=== PATIENT | female | born 1995 | race African-American/Black ===

== ENCOUNTER 2024-12-31 09:06 | Emergency (ER) | payer OTHER, SELFPAY ==
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
--- NOTE | ~2024-12-31 | XR_ITS ---
EXAMINATION: XR wrist RT min 3V, 12/31/2024 11:15 STRATEGY SPECIALIST HISTORY: pain and swelling, RT WRIST COMPARISON: No comparisons available. Findings: No acute fracture or malalignment. No significant degenerative changes. Soft tissues unremarkable. Impression: No acute fracture or malalignment. Reviewed, dictated and finalized at location P. TEGY SPECIALIST Impression: No acute fracture or malalignment.
--- NOTE | ~2024-12-31 | XR_ITS ---
EXAMINATION: XR finger 3rd RT min 2V, 12/31/2024 11:15 HACKLER DOLL WIGS HISTORY: swelling and pain 3RD RT DIGIT COMPARISON: No comparisons available. Findings: No acute fracture or malalignment. No significant degenerative changes. Soft tissues unremarkable. Impression: No acute fracture or malalignment. Reviewed, dictated and finalized at location P. LER DOLL WIGS Impression: No acute fracture or malalignment.
[2024-12-31 09:09] VITALS: BP 109/65; PULSE 71; RESP 18; TEMP 36.5; O2SAT 100
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
--- OUTSIDE RECORDS SUMMARY | 2024-12-31 12:42 | XMS_ITS | Clinical Summary ---
Author Organization [facility] Address [address] [place] [address] Care Team Providers Care Driver Manager Name Role Phone Unavailable Primary Care Provider Unavailabl e Source Comments [facility],non-owned Affiliates and Associated Physician Practices is amultiple site organization consisting of ambulatory clinics and hospital sitesin [place], [place], [place] and [place]. This disclosure is being madepursuant to the Care Everywhere program and may not contain all information available regarding this patient. Last updated 17.[facility] Allergies No known active allergies Medications * Be aware that medications may not be up to date on this document. Alwaysverify current medications with the patient. oyster shell calcium 500 MG tablet Take 500 mg by mouth once daily 05/08/2021 Active Active Problems Problem Noted Date Diagnosed Date Closed fracture of distal en d of left humerus with routine healing 05/08/2021 Impaired mobility and ADLs 05/08/2021 Vitamin D deficiency 05/08/2021 Preop examination 05/07/2021 Fourth 02/16/2020 Encounter for ultrasound 02/16/2020 Prior with demise 02/16/2020 Short interval between pregn ancies affecting , antepartum 02/16/2020 Anemia 02/16/2020 Resolved Problems Problem Noted Date Diagnosed Date Resolved Date Decreased movements in third trimester 0 02/16/2020 demise affecting delivery 07/11/2019 02/16/2020 Immunizations Immunization Administration Dates Next Due MMR 07/13/2019(Deferred: - immune) TDAP (7yrs+) 07/13/2019(Deferred: Patient Ref used) Social History Tobacco Use Types Packs/Day Years Used Date Smoking Tobacco: Never Smokeless Tobacco: Never Alcohol Use Standard Drinks/Week Comments Not Currently 0 (1 standard drink = 0.6 oz pur e alcohol) AUDIT-C Answer Date Recorded Q1: How often do you have a drink containing alc ohol? Never 05/07/2021 Q2: How many drinks containi ng alcohol do you have on a typical day when you are drinking? Patient declined 05/07/2021 Q3: How often do you have si x or more drinks on one occasion? Never 05/07/2021 Hunger Vital Sign Answer Date Recorded Within the past 12 months, y ou worried that your food would run out before you got the money to buy more. Never true 05/09/19 22 Within the past 12 months, t he food you bought just didn't last and you didn't have money to get more. 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 OPERATOR Gender Identity Not on file Sexual Orientation Not on file Last Filed Vital Signs Vital Sign Reading Time Taken Comments Blood Pressure 101/63 05/08/2021 7:11 AM CDT Pulse 84 05/08/2021 7:11 AM CDT Temperature 36.9 C (98.5 F) 05/08/2021 7:11 AM CDT Respiratory Rate 18 05/08/2021 7:11 AM CDT Oxygen Saturation 99% 05/08/2021 7:11 AM CDT Inhaled Oxygen Concentration - - Weight 78.9 kg (174 lb) 08/09/2021 9:16 AM CDT Height 162.6 cm (5' 4) 05/24/2021 4:18 PM CDT Body Mass Index 29.87 05/24/2021 4:18 PM CDT Plan of Treatment Health Maintenance Due Date Last Done Comments HIV SCREENING 09/02/2011 HEPATITIS C SCREENING 08/28/2014 DTAP/TDAP/TD VACCINES (1 - Tdap) 09/02/2015 HEPATITIS B VACCINE (1 of 3 - 19+ 3-dose series) 09/02/2015 HPV VACCINE (1 - 3-dose SCDM series) 09/02/2023 DEPRESSION SCREENING 02/25/2024 COVID-19 VACCINE (1 - 4-2 5 season) 2024 INFLUENZA VACCINE (#1) 2024 ZOSTER VACCINE (1 of 2) 2046 HIB VACCINE Aged Out No longer eligi ble based on patient's age to complete this topic MENINGOCOCCAL (Group B) VACC INE SHARED DECISION-MAKING Aged Out No longer eligibl e based on patient's age to complete this topic MENINGOCOCCAL GROUPS A/C/Y/W VACCINE Aged Out No longer eligible b ased on patient's age to complete this topic PNEUMOCOCCAL VACCINE Aged Out No long er eligible based on patient's age to complete this topic Medical Devices Implanted Type Area [employer] Device Identifier Shelf Expiration Date Model / Serial / Lot Screw 2.7mm 5mm 20mm Ft Cortx Slf-Tap Implanted:Qty: 1 on 05/07/2021 by Sesar Curiel MD at [facility] Left: [employer] [id number] / / Screw 3.5mm 6mm 18mm Ft Armando Slf-Tap Implanted:Qty: 1 on 05/07/2021 by Sesar Curiel MD at [facility] Left: [employer] [id number] / / Screw 3.5mm 6mm 20mm 2.5mm Ft Slf-Tap Implanted:Qty: 2 on 05/07/2021 by Sesar Curiel MD at [facility] Left: [employer] [id number] / / Screw 3.5mm 6mm 22mm 2.5mm Ft Slf-Tap Implanted:Qty: 2 on 05/07/2021 by Sesar Curiel MD at [facility] Left: [employer] [id number] / / Plate 12 Hl Lmt Cntct Tpr End [id number] Implanted:Qty: 1 on 05/07/2021 by Sesar Curiel MD at [facility] Left: [employer] [id number] / / Screw 3.5mm 6mm 24mm 2.5mm Ft Slf-Tap Implanted:Qty: 1 on 05/07/2021 by Sesar Curiel MD at [facility] Left: [employer] [id number] / / Explanted Type Area [employer] Revenue [employer] Device Identifier Shelf Expiration Date Model / Serial / Lot Screw 2.7mm 5mm 26mm Ft Cortx Slf-Tap Explanted:Qty: 1 on 05/07/2021 by Sesar Curiel MD at [facility] Left: Humerus [employer] [facility] [id number] / / Insurance [facility] Advance Directives * Full Code (Latest Code Status on File) Date Activated Date Inactivated Comments 05/07/2021 10:48 AM 05/08/2021 6:51 PM * Full Code Date Activated Date Inactivated Comments 07/11/2019 3:49 PM 07/13/2019 4:59 PM * Full Code Date Activated Date Inactivated Comments 07/11/2019 1:49 PM 07/11/2019 3:49 PM
--- OUTSIDE RECORDS SUMMARY | 2024-12-31 12:42 | XMS_ITS | Clinical Summary ---
Author Organization [facility] Address [address] [place] [address] Care Team Providers Care Motion Picture Equipment Machinist Name Role Phone No, Physician Primary Care Provider [phone] Allergies No known active allergies Medications acetaminophen (TYLENOL) 500 mg tablet Take 2 tablets (1,000 mg total) by mouth every 6 (six) hours as needed for pain (1 tablet for mild to moderate pain. 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 - 12/30/2024 10:18 PM [facility] Emergency [address] [id number] Discharge Disposition: Left without being seen from Last 3 Months Immunizations Immunization Administration Dates Next Due Tdap 02/14/2024 Social History Tobacco Use Types Packs/Day Years [...] on file Legal Sex Female 9:06 PM [employer] 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[employer]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[employer] Gender Identity Not on file Sexual Orientation Not on file Last Filed Vital Signs Vital Sign Reading Time Taken Comments Blood Pressure 102/44 12/30/2024 6:26 PM [employer] Pulse 100 12/30/2024 6:26 PM [employer] Temperature 36.8 C (98.2 F) 12/30/2024 6:26 PM [employer] Respiratory Rate 18 12/30/2024 6:26 PM [employer] Oxygen Saturation 98% 12/30/2024 6:26 PM [employer] Inhaled Oxygen Concentration - - Weight 80.3 kg (177 lb) 02/14/2024 7:05 AM [employer] Height 162.6 cm (5' 4) 02/14/2024 7:05 AM [employer] Body Mass Index 30.38 02/14/2024 7:05 AM [employer] Plan of Treatment Health Maintenance Due Date Last Done Comments Cervical Cancer Screening 1996 Depression Screening 1996 Hepatitis C Screening 1996 Regular Well Visit/Exam 18-64 2014 Covid-19 Vaccine ( season) 2024 10/17/2021, 09/12/2021 DTaP/Tdap/Td Vaccine (11 - Td or Tdap) 02/13/2034 02/14/2024, 03/12/2022, 04/20/2020, Additional history exists Hepatitis B Screening Completed 11/01/1999 , 03/01/1997, 1996 Varicella Vaccines Completed 10/07/2007, 01/01/2000 HPV Vaccines Completed 09/26/2016, 10/04/2008 Influenza Vaccine Completed 11/14/2024, 03/12/2022 Pneumococcal vaccine <65 Aged Out No longer eligible based on patient's age to complete this topic Procedures Procedure Name Priority Date/Time Associated Diagnosis Comments XR WRIST RIGHT 2 VIEWS ED 12/30/2024 7:09 PM [employer] XR HAND RIGHT 3 OR MORE VIEWS ED 12/30/2024 7:09 PM [employer] from Last 3 Months Results * XR Hand Right 3 or More Views (12/30/2024 7:09 PM [employer]) Anatomical Region Laterality Modality Upper Extremities, Hand Right Computed Radiography 12/30/2024 7:11 PM [employer] Impressions 12/30/2024 7:11 PM [employer] FINDINGS/IMPRESSION: Generalized osteopenia and minor degenerative changes are noted. No fracture dislocation or other acute process is seen. Electronically signed by: Lan Valdez M.D. Narrative 12/30/2024 7:11 PM [employer] MEDICAL RECORDS NUMBER: [id number] PROCEDURE: XR HAND RIGHT 3 OR MORE VIEWS DATE: 12/30/2024 7:00 PM HISTORY: 29 years old Female. pain VIEWS: 3 COMPARISON: None Procedure Note Lan Valdez MD - 12/30/2024 MEDICAL RECORDS NUMBER: [id number] PROCEDURE: XR HAND RIGHT 3 OR MORE VIEWS DATE: 12/30/2024 7:00 PM HISTORY: 29 years old Female. pain VIEWS: 3 COMPARISON: None IMPRESSION: FINDINGS/IMPRESSION: Generalized osteopenia and minor degenerative changes are noted. No fracture dislocation or other acute process is seen. Electronically signed by: Lan Valdez M.D. Marley TOLENTINO [facility] XR PROCEDURES Final Result * XR Wrist Right 2 Views (12/30/2024 7:09 PM [employer]) Anatomical Region Laterality Modality Upper Extremities, Wrist Right Compute d Radiography 12/30/2024 7:13 PM [employer] Impressions 12/30/2024 7:13 PM [employer] FINDINGS/IMPRESSION: No definite acute fracture or dislocation is seen. The bones appear somewhat osteopenic. The scaphoid appears somewhat flattened which likely is chronic. MRI may be helpful if concern persists Electronically signed by: Lan Valdez M.D. Narrative 12/30/2024 7:13 PM [employer] MEDICAL RECORDS NUMBER: [id number] PROCEDURE: XR WRIST RIGHT 2 VIEWS DATE: 12/30/2024 7:00 PM HISTORY: 29 years old Female. pain VIEWS: 2 COMPARISON: None Procedure Note Lan Valdez MD - 12/30/2024 MEDICAL RECORDS NUMBER: [id number] PROCEDURE: XR WRIST RIGHT 2 VIEWS DATE: 12/30/2024 7:00 PM HISTORY: 29 years old Female. pain VIEWS: 2 COMPARISON: None IMPRESSION: FINDINGS/IMPRESSION: No definite acute fracture or dislocation is seen. The bones appear somewhat osteopenic. The scaphoid appears somewhat flattened which likely is chronic. MRI may be helpful if concern persists Electronically signed by: Lan Valdez M.D. Marley Gleason RAJAN IMG XR PROCEDURES Final Result from Last 3 Months Insurance Care Teams Motion Picture Equipment Machinist Relationship Specialty Start Date End Date No, Physician PCP - General 02/14/24
== END 2024-12-31 13:01 | disposition home or self-care (01) ==
PROVIDERS: Emergency Provider Family Medicine
DX: S00.83XA Contusion of other part of head, initial encounter (principal); S63.612A Unspecified sprain of right middle finger, initial encounter; Y00.XXXA Assault by blunt object, initial encounter
CPT/HCPCS: 73110; 73140; 99283